=== PATIENT | female | born 1980 | race American Indian/Alaskan Native ===

== ENCOUNTER 2022-03-03 07:52 | Day surgery (SDC) | payer OTHER ==
[2022-03-02 08:54] VITALS: BMI 48.0
[~2022-03-03 07:52] MED LIST: LACTATED RINGERS 1,000 ML IV SCH
--- NOTE | 2022-03-03 07:52 | P.GSHP ---
History of Present Illness H&P Date: 03/03/22 CHIEF COMPLAINT: GERD and colon screen HISTORY OF PRESENT ILLNESS: The patient is a 42-year-old female who presents with gastroesophageal reflux disease and need for colon screen. Upper and lower endoscopy were offered for further evaluation and management. PAST MEDICAL HISTORY: Please see list. PAST SURGICAL HISTORY: Please see list. MEDICATIONS: Please see list. ALLERGIES: Please see list. SOCIAL HISTORY: No illicit drug use FAMILY HISTORY: No reports of Crohn disease or ulcerative colitis. REVIEW OF ORGAN SYSTEMS: CONSTITUTIONAL: No reports of fevers or chills. GI: Denies any blood in stools or constipation. PHYSICAL EXAM: VITAL SIGNS: Stable GENERAL: Well-developed pleasant in no acute distress. HEENT: No scleral icterus. Extraocular movements grossly intact. Moist buccal mucosa. NECK: Supple without lymphadenopathy. CHEST: Unlabored respirations. Equal bilateral excursions. CARDIOVASCULAR: Regular rate and rhythm. Distal 2+ pulses. ABDOMEN: Soft, nondistended. MUSCULOSKELETAL: No clubbing, cyanosis, or edema. ASSESSMENT: 1. Gastroesophageal reflux disease 2. Colon screen. PLAN: 1. Recommend proceeding with an upper and lower endoscopy Past Medical History Past Medical History: Asthma, Diabetes Mellitus, Hyperlipidemia Additional Past Medical History / Comment(s): RECTAL BLEEDING History of Any Multi-Drug Resistant Organisms: None Reported Past Surgical History: Adenoidectomy, Section, Ear Surgery, Tonsillectomy Additional Past Surgical History / Comment(s): TUBES PLACED AND REMOVED Past Anesthesia/Blood Transfusion Reactions: No Reported Reaction, Motion Sickness Past Psychological History: Anxiety, Bipolar, Depression Smoking Status: Never smoker Past Alcohol Use History: None Reported Past Drug Use History: None Reported - Past Family History Mother History Unknown: Yes Medications and Allergies Home Medications Medication Instructions Recorded Confirmed Type Albuterol Sulfate [Proair Hfa] 1 - 2 puff INHALATION Q6HR PRN 03/02/22 03/02/22 History Amitriptyline HCl 25 mg PO HS 03/02/22 03/02/22 History Cetirizine HCl 10 mg PO DAILY PRN 03/02/22 03/02/22 History Cyclobenzaprine [Flexeril] 10 mg PO HS 03/02/22 03/02/22 History Multivitamins, Thera [Multivitamin 1 tab PO DAILY 03/02/22 03/02/22 History (formulary)] Pravastatin Sodium [Pravachol] 10 mg PO HS 03/02/22 03/02/22 History buPROPion XL [Wellbutrin XL] 300 mg PO DAILY 03/02/22 03/02/22 History glipiZIDE XL [Glucotrol Xl] 10 mg PO DAILY 03/02/22 03/02/22 History metFORMIN HCL 500 mg PO BID 03/02/22 03/02/22 History Allergies Allergy/AdvReac Type Severity Reaction Status Date / Time Penicillins Allergy Rash/Hives Verified 03/02/22 08:36 Sulfa (Sulfonamide Allergy Rash/Hives Verified 03/02/22 08:36 Antibiotics) gabapentin [From Neurontin] AdvReac Nausea Verified 03/02/22 08:36 naproxen AdvReac Nausea Verified 03/02/22 08:36
[2022-03-03 08:32] VITALS: TEMP 96.9
[2022-03-03 08:33] LABS: Glucose,Whole Blood 124 mg/dL (70-110)
[2022-03-03] MEDS ORDERED: MIDAZOLAM 2 MG/2 ML VIAL ONE (08:51)
[2022-03-03] MEDS ORDERED: PROPOFOL 10 MG/ML 20 ML VIAL IV ONE (08:51)
[2022-03-03] MEDS ORDERED: LIDOCAINE 2% INJ 20 MG/ML (2 ML VIAL) ONE (08:51)
[2022-03-03] MEDS ORDERED: fentaNYL (PF) 50 MCG/ML 2 ML AMP ONE (08:51)
--- NOTE | 2022-03-03 09:51 | P.PCN ---
Date of Procedure: 03/03/22 Description of Procedure: PREOPERATIVE DIAGNOSIS: Gastrointestinal bleeding with hematochezia POSTOPERATIVE DIAGNOSIS: Internal/external hemorrhoids, grade 2 OPERATION: Colonoscopy to the cecum, ileocecal valve and appendiceal orifice SURGEON: Kristi Licea MD. ANESTHESIA: MAC. INDICATIONS: The patient is a 42-year-old female who presents with gastrointestinal bleeding. Benefits and risks were described and informed consent was obtained. DESCRIPTION OF PROCEDURE: The patient had undergone MiraLAX prep. The patient had been brought into the operating room and laid in the left lateral decubitus position. After adequate intravenous sedation, the rectum was examined with 2% lidocaine jelly. External hemorrhoids was identified The rectal tone was tight. An Olympus colonoscope was gently advanced to the cecum with clear visualization of the ileocecal valve including appendiceal orifice. The prep was good. No large sigmoid diverticulosis was encountered without active bleeding. No active colonic bleeding was found. No intraluminal masses were identified within the colon. No colonic polyps were found. No evidence of focal colitis was found. Retroflexion of the scope demonstrated grade 2 internal hemorrhoids with recent inflammation. The colon was desufflated. The patient had tolerated the procedure well. Withdrawal time was over 6 minutes. FINDINGS: Aronchick preparation quality scale 2 (1-5) Internal hemorrhoids, grade 2 External hemorrhoids grade 2 No arteriovenous malformations. No adenomatous polyps. No focal colitis. RECOMMENDATIONS: Lower endoscopy as needed Plan - Discharge Summary New Discharge Prescriptions: Continue Multivitamins, Thera [Multivitamin (formulary)] 1 tab PO DAILY Pravastatin Sodium [Pravachol] 10 mg PO HS Cetirizine HCl 10 mg PO DAILY PRN PRN Reason: Congestion glipiZIDE XL [Glucotrol XL] 10 mg PO DAILY buPROPion XL [Wellbutrin XL] 300 mg PO DAILY Albuterol Sulfate [Proair Hfa] 1 - 2 puff INHALATION Q6HR PRN PRN Reason: Bronchospasm Amitriptyline HCl 25 mg PO HS metFORMIN HCL 500 mg PO BID Cyclobenzaprine [Flexeril] 10 mg PO HS Discharge Medication List Albuterol Sulfate [Proair Hfa] 1 - 2 puff INHALATION Q6HR PRN 03/02/22 [History] Amitriptyline HCl 25 mg PO HS 03/02/22 [History] Cetirizine HCl 10 mg PO DAILY PRN 03/02/22 [History] Cyclobenzaprine [Flexeril] 10 mg PO HS 03/02/22 [History] Multivitamins, Thera [Multivitamin (formulary)] 1 tab PO DAILY 03/02/22 [History] Pravastatin Sodium [Pravachol] 10 mg PO HS 03/02/22 [History] buPROPion XL [Wellbutrin XL] 300 mg PO DAILY 03/02/22 [History] glipiZIDE XL [Glucotrol XL] 10 mg PO DAILY 03/02/22 [History] metFORMIN HCL 500 mg PO BID 03/02/22 [History] Follow up Appointment(s)/Referral(s): Kristi Licea MD [STAFF PHYSICIAN] - 1 Week Patient Instructions/Handouts: *[facility] - (Anesthesia) Endoscopy Discharge Instructions Discharge Disposition: HOME SELF-CARE
[2022-03-03 09:56] VITALS: BP 101/68; PULSE 96; RESP 20
--- NOTE | 2022-03-03 10:11 | P.PCN ---
Date of Procedure: 03/03/22 Description of Procedure: PREOPERATIVE DIAGNOSIS: Gastrointestinal bleed POSTOPERATIVE DIAGNOSIS: Gastritis with gastric ulcer without bleeding OPERATION: Esophagogastroduodenoscopy with biopsies along antrum, duodenal SURGEON: Kristi Licea MD ANESTHESIA: MAC. INDICATIONS: The patient is a 42-year-old female who presents with GI bleed and epigastric pain. Benefits of the procedure were described. Informed consent was obtained. DESCRIPTION: The patient was brought into the endoscopy suite and laid in the left lateral decubitus position. An Olympus gastroscope was passed along the posterior oropharynx down to the distal esophagus where the squamocolumnar junction was encountered at 36 cm from the incisors. The stomach was entered and no bile reflux was found. Additional findings are listed below. Biopsies with cold forceps were obtained of the antrum. The first through third portion of the duodenum was examined. Retroflexion of the scope confirmed Hill grade 2 lower esophageal valve. The squamocolumnar junction demonstrated no LA grade A erosive esophagitis. The stomach was desufflated. The patient tolerated the procedure well. FINDINGS: Squamocolumnar junction 36 cm from the incisors. Diaphragmatic hiatus at 36 cm. Hill grade 2 lower esophageal valve. No LA grade A erosive esophagitis. Active duodenitis. Chronic gastritis with punctate gastric ulcer without bleeding RECOMMENDATIONS: Omeprazole 40 mg twice a day for 2 weeks Upper endoscopy as needed.
== END 2022-03-03 10:25 | disposition home or self-care (01) ==
LOC: ORWHC2ENDO 07:52
PROVIDERS: ATTEND Surgery Plastic and Reconstructive Surgery
DX: K29.50 Unspecified chronic gastritis without bleeding (principal); K64.1 Second degree hemorrhoids; K44.9 Diaphragmatic hernia without obstruction or gangrene; K21.9 Gastro-esophageal reflux disease without esophagitis; D72.820 Lymphocytosis (symptomatic); E11.9 Type 2 diabetes mellitus without complications; J45.909 Unspecified asthma, uncomplicated; F41.8 Other specified anxiety disorders; F31.9 Bipolar disorder, unspecified; E78.5 Hyperlipidemia, unspecified; Z90.89 Acquired absence of other organs; Z98.891 History of uterine scar from previous surgery; Z98.890 Other specified postprocedural states; Z79.51 Long term (current) use of inhaled steroids; Z79.899 Other long term (current) drug therapy; Z79.84 Long term (current) use of oral hypoglycemic drugs; Z79.1 Long term (current) use of non-steroidal anti-inflammatories (NSAID)
CPT/HCPCS: 81025; 88305; 43239; J2250; J3010; J2704; J2001; G0121